=== PATIENT | female | born 1940 | race Caucasian/White ===

== ENCOUNTER 2020-10-24 10:34 | Inpatient (IN) | payer MEDICARE ==
[2020-10-24 11:47] LABS: #Basophils 0.1 thou/uL (0.0-0.2); #Lymphocytes 1.1 thou/uL (1.20-3.40); #Monocytes 0.7 thou/uL (0.11-0.59); #Neutrophils 5.5 thou/uL (1.40-6.50); %Basophils 1.3 % (0.0-1.0); %Eosinophils 0.5 % (0.0-10.0); %Lymphocytes 14.2 % (21.0-51.0); %Monocytes 9.6 % (0.0-10.0); %Neutrophils 74.4 % (42.0-75.0); Mean Corpuscular Hemoglobin 29.3 pg (27.0-31.0); Mean Corpuscular Volume 88.8 fL (78.0-98.0); Mean Platelet Volume 7.7 fL (7.4-10.4); Platelet Count 218 thou/uL (130-400); RBC Distribution Width 13.4 % (11.5-14.5); Red Blood Cell (RBC) Count 4.09 mill/uL (4.20-5.40); White Blood Cell (WBC) Count 7.4 thou/uL (4.8-10.8)
[2020-10-24 12:18] LABS: ALT (SGPT) 19 U/L (8-55); AST (SGOT) 23 U/L (5-34); Albumin 3.8 g/dL (3.4-4.8); Alkaline Phosphatase 65 U/L (40-110); Anion Gap 12 mmol/L (10-20); BUN (Urea Nitrogen) 24 mg/dL (9.8-20.1); Bilirubin, Total 1.3 mg/dL (0.2-1.2); Calc. Creatinine Clearance 0 mL/min (70-130); Calcium 9.6 mg/dL (7.8-10.44); Carbon Dioxide 25 mmol/L (23-31); Chloride 105 mmol/L (98-107); Globulin 2.3 g/dL (2.4-3.5); Glucose 132 mg/dL (83-110); Lipase 33 U/L (8-78); Potassium 4.1 mmol/L (3.5-5.1); Protein, Total 6.1 g/dL (5.8-8.1); Sodium 138 mmol/L (136-145)
[2020-10-24] MEDS ORDERED: Pantoprazole 80 MG, Admixture Fee 1 EACH in Sodium Chloride 0.9% 100 ML IVPB SCH (12:45)
[2020-10-24] MEDS ORDERED: Acetaminophen 325 MG TAB PO PRN (14:37)
[2020-10-24] MEDS ORDERED: HYDROcodone/Acetaminophen 5/325 mg Tablet PO PRN (14:37)
[2020-10-24] MEDS ORDERED: Ondansetron PF 4 MG/2 ML Vial IVP PRN (14:37)
[2020-10-24] MEDS ORDERED: Iopamidol-370 76% 500 ML 1 ML ONE (14:52)
[2020-10-24] MEDS ORDERED: Pantoprazole 40 MG VIAL ONE (14:54)
[2020-10-24 17:11] VITALS: BMI 29.5
[2020-10-24 17:22] LABS: Hemoglobin 10.3 g/dL (12.0-16.0); Platelet Count 187 thou/uL (130-400)
[2020-10-24 22:04] LABS: SARS-CoV-2 PCR by NAA Not Detected (NotDetected)
[2020-10-24 23:28] LABS: Hemoglobin 9.6 g/dL (12.0-16.0); Platelet Count 175 thou/uL (130-400)
[2020-10-25 06:10] LABS: #Basophils 0.1 thou/uL (0.0-0.2); #Eosinphils 0.1 thou/uL (0.0-0.7); #Lymphocytes 2.1 thou/uL (1.20-3.40); #Monocytes 0.7 thou/uL (0.11-0.59); %Basophils 1.1 % (0.0-1.0); %Eosinophils 2.4 % (0.0-10.0); %Lymphocytes 35.3 % (21.0-51.0); %Monocytes 11.2 % (0.0-10.0); Hemoglobin 8.9 g/dL (12.0-16.0); Mean Corpuscular HGB CONC 34.1 g/dL (32.0-36.0); Mean Corpuscular Hemoglobin 29.9 pg (27.0-31.0); Mean Corpuscular Volume 87.7 fL (78.0-98.0); Platelet Count 167 thou/uL (130-400); RBC Distribution Width 13.5 % (11.5-14.5); Red Blood Cell (RBC) Count 2.96 mill/uL (4.20-5.40)
[2020-10-25 06:20] LABS: INR-International Normal Ratio 1.1
[2020-10-25 06:33] LABS: Anion Gap 8 mmol/L (10-20); BUN (Urea Nitrogen) 22 mg/dL (9.8-20.1); Calc. Creatinine Clearance 99 mL/min (70-130); Calcium 8.3 mg/dL (7.8-10.44); Carbon Dioxide 25 mmol/L (23-31); Chloride 110 mmol/L (98-107); Glucose 101 mg/dL (83-110); Potassium 3.9 mmol/L (3.5-5.1); Sodium 139 mmol/L (136-145)
[2020-10-25] MEDS ORDERED: Loratadine 10 MG TAB PO PRN (08:10)
[2020-10-25] MEDS ORDERED: Non-Formulary Item 1 EACH (Mirabegron [Myrbetriq] 50 MG Tab.Er.24h) PO SCH (09:00)
[2020-10-25] MEDS ORDERED: Lidocaine 1% PF 5 ML VIAL ONE (10:12)
[2020-10-25] MEDS ORDERED: PHENYLEPHRINE-NS 100 MCG/ML 10 ML SYRINGE ONE (10:12)
[2020-10-25] MEDS ORDERED: PROPOFOL 200 MG/20 ML VIAL ONE (10:12)
[2020-10-25] MEDS ORDERED: Fentanyl 100 MCG/2 ML VIAL ONE (10:54)
[2020-10-25] MEDS ORDERED: Non-Formulary Medication 1 EACH PO PRN (12:02)
[2020-10-25] MEDS ORDERED: Ondansetron PF 4 MG/2 ML Vial IVP PRN (12:03)
[2020-10-25] MEDS ORDERED: Promethazine HCl 25 MG/ML VIAL IM/IV PRN (12:15)
[2020-10-25] MEDS ORDERED: Ondansetron HCl/PF 4 MG/2 ML Vial IVP PRN (12:15)
[2020-10-25 12:37] LABS: Hemoglobin 8.9 g/dL (12.0-16.0); Platelet Count 161 thou/uL (130-400)
[2020-10-25] MEDS: Calcium Carbonate 600 MG + Vit D TAB PO SCH ×3 (12:54→21:06)
[2020-10-25] MEDS: Atorvastatin Calcium 40 MG TAB PO SCH (12:54)
[2020-10-25] MEDS: Metoprolol Tartrate 25 MG TAB PO SCH ×2 (12:54→21:06)
[2020-10-25] MEDS: Levothyroxine Sodium 125 MCG TAB PO SCH (12:55)
[2020-10-25] MEDS: Pantoprazole 40 MG VIAL IVP SCH (21:06)
[2020-10-26 05:52] LABS: #Basophils 0.1 thou/uL (0.0-0.2); #Eosinphils 0.2 thou/uL (0.0-0.7); #Lymphocytes 1.7 thou/uL (1.20-3.40); #Monocytes 0.5 thou/uL (0.11-0.59); #Neutrophils 4.8 thou/uL (1.40-6.50); %Basophils 0.7 % (0.0-1.0); %Eosinophils 2.6 % (0.0-10.0); %Lymphocytes 23.7 % (21.0-51.0); %Monocytes 7.1 % (0.0-10.0); Mean Corpuscular HGB CONC 33.2 g/dL (32.0-36.0); Mean Corpuscular Hemoglobin 29.2 pg (27.0-31.0); Mean Corpuscular Volume 87.9 fL (78.0-98.0); Mean Platelet Volume 8.1 fL (7.4-10.4); Platelet Count 165 thou/uL (130-400); RBC Distribution Width 13.8 % (11.5-14.5); Red Blood Cell (RBC) Count 2.75 mill/uL (4.20-5.40); White Blood Cell (WBC) Count 7.3 thou/uL (4.8-10.8)
[2020-10-26 06:13] LABS: Anion Gap 10 mmol/L (10-20); BUN (Urea Nitrogen) 13 mg/dL (9.8-20.1); Calc. Creatinine Clearance 101 mL/min (70-130); Calcium 8.3 mg/dL (7.8-10.44); Carbon Dioxide 25 mmol/L (23-31); Chloride 109 mmol/L (98-107); Glucose 101 mg/dL (83-110); Sodium 140 mmol/L (136-145)
[2020-10-26] MEDS: Levothyroxine Sodium 125 MCG TAB PO SCH (09:26)
[2020-10-26] MEDS: Pantoprazole 40 MG VIAL IVP SCH ×2 (09:29→20:53)
[2020-10-26] MEDS: Metoprolol Tartrate 25 MG TAB PO SCH ×2 (10:37→20:52)
[2020-10-26] MEDS: Atorvastatin Calcium 40 MG TAB PO SCH (10:37)
[2020-10-26] MEDS: Calcium Carbonate 600 MG + Vit D TAB PO SCH ×3 (10:37→20:52)
[2020-10-26 11:02] LABS: Hemoglobin 8.4 g/dL (12.0-16.0)
[2020-10-26 19:09] LABS: Hemoglobin 8.6 g/dL (12.0-16.0)
[2020-10-27] MEDS ORDERED: Levothyroxine Sodium 125 MCG TAB PO SCH (06:00)
[2020-10-27 06:20] LABS: #Basophils 0.1 thou/uL (0.0-0.2); #Eosinphils 0.3 thou/uL (0.0-0.7); #Lymphocytes 2.5 thou/uL (1.20-3.40); #Monocytes 0.6 thou/uL (0.11-0.59); #Neutrophils 5.4 thou/uL (1.40-6.50); %Basophils 0.8 % (0.0-1.0); %Eosinophils 2.9 % (0.0-10.0); %Lymphocytes 28.3 % (21.0-51.0); %Monocytes 7.1 % (0.0-10.0); Hemoglobin 9.2 g/dL (12.0-16.0); Mean Corpuscular HGB CONC 32.9 g/dL (32.0-36.0); Mean Platelet Volume 8.1 fL (7.4-10.4); Platelet Count 211 thou/uL (130-400); RBC Distribution Width 14.4 % (11.5-14.5); Red Blood Cell (RBC) Count 3.18 mill/uL (4.20-5.40); White Blood Cell (WBC) Count 8.9 thou/uL (4.8-10.8)
[2020-10-27 06:41] LABS: Anion Gap 12 mmol/L (10-20); BUN (Urea Nitrogen) 7 mg/dL (9.8-20.1); Calc. Creatinine Clearance 99 mL/min (70-130); Calcium 8.8 mg/dL (7.8-10.44); Carbon Dioxide 25 mmol/L (23-31); Chloride 106 mmol/L (98-107); Glucose 104 mg/dL (83-110); Potassium 3.8 mmol/L (3.5-5.1); Sodium 139 mmol/L (136-145)
[2020-10-27 07:04] VITALS: TEMP 98.4
[2020-10-27] MEDS: Atorvastatin Calcium 40 MG TAB PO SCH (08:24)
[2020-10-27] MEDS: Pantoprazole 40 MG VIAL IVP SCH (08:24)
[2020-10-27] MEDS: Metoprolol Tartrate 25 MG TAB PO SCH (08:24)
[2020-10-27] MEDS: Calcium Carbonate 600 MG + Vit D TAB PO SCH ×2 (08:24→14:01)
[2020-10-27 15:48] VITALS: BP 113/67
== END 2020-10-27 16:14 | disposition home or self-care (01) | DRG 378 ==
LOC: ERS 10:34 → T4-A 14:22 → OBSVTOIN 10-26 13:25
PROVIDERS: ADMIT Family Medicine; ATTEND Internal Medicine
PROC: 0W3P8ZZ Control Bleeding in Gastrointestinal Tract, Via Natural or Artificial Opening Endoscopic (ICD-10-PCS; principal; 2020-10-25)
DX: K31.82 Dieulafoy lesion (hemorrhagic) of stomach and duodenum (principal); D62 Acute posthemorrhagic anemia; I42.2 Other hypertrophic cardiomyopathy; Z20.822 Contact with and (suspected) exposure to COVID-19; K44.9 Diaphragmatic hernia without obstruction or gangrene; K22.2 Esophageal obstruction; E78.5 Hyperlipidemia, unspecified; I48.0 Paroxysmal atrial fibrillation; I95.9 Hypotension, unspecified; I35.0 Nonrheumatic aortic (valve) stenosis; E03.9 Hypothyroidism, unspecified; Z88.0 Allergy status to penicillin; Z88.1 Allergy status to other antibiotic agents; Z88.8 Allergy status to other drugs, medicaments and biological substances; Z86.73 Personal history of transient ischemic attack (TIA), and cerebral infarction without residual deficits; Z90.49 Acquired absence of other specified parts of digestive tract
CPT/HCPCS: 36415; 74177; 80048; 80053; 82274; 83690; 85025; 85610; 86850; 86900; 86901; 87635; 94760; 96365; 96366; 96376; C9113; G0378; J1610; J2704; J3010; J3490; Q9967; U0003; U0005

== ENCOUNTER 2021-01-17 16:05 | Outpatient (CLI) | payer MEDICARE, OTHER ==
[2021-01-18 15:25] LABS: SARS-CoV-2 PCR by NAA Not Detected (NotDetected)
== END 2021-01-17 16:06 | disposition home or self-care (01) ==
LOC: LABBT 16:05
PROVIDERS: ATTEND Internal Medicine
DX: Z01.812 Encounter for preprocedural laboratory examination (principal); K31.82 Dieulafoy lesion (hemorrhagic) of stomach and duodenum; K25.3 Acute gastric ulcer without hemorrhage or perforation; K22.2 Esophageal obstruction; Z20.822 Contact with and (suspected) exposure to COVID-19
CPT/HCPCS: U0003; U0005

== ENCOUNTER 2021-05-01 11:14 | Emergency (ER) | payer MEDICARE, OTHER ==
[2021-05-01 11:52] LABS: #Basophils 0.1 thou/uL (0.0-0.2); #Eosinphils 0.2 thou/uL (0.0-0.7); #Lymphocytes 1.4 thou/uL (1.20-3.40); #Monocytes 0.5 thou/uL (0.11-0.59); #Neutrophils 4.3 thou/uL (1.40-6.50); %Basophils 1.2 % (0.0-1.0); %Eosinophils 2.8 % (0.0-10.0); %Lymphocytes 21.9 % (21.0-51.0); %Monocytes 8.1 % (0.0-10.0); Hemoglobin 10.1 g/dL (12.0-16.0); Mean Corpuscular HGB CONC 31.4 g/dL (32.0-36.0); Mean Corpuscular Hemoglobin 23.5 pg (27.0-31.0); Mean Corpuscular Volume 74.9 fL (78.0-98.0); Mean Platelet Volume 9.1 fL (7.4-10.4); Platelet Count 193 thou/uL (130-400); RBC Distribution Width 15.4 % (11.5-14.5); Red Blood Cell (RBC) Count 4.31 mill/uL (4.20-5.40); White Blood Cell (WBC) Count 6.5 thou/uL (4.8-10.8)
[2021-05-01 12:09] LABS: Magnesium 1.5 mg/dL (1.6-2.6)
[2021-05-01 12:11] LABS: ALT (SGPT) 13 U/L (8-55); AST (SGOT) 19 U/L (5-34); Albumin 3.7 g/dL (3.4-4.8); Alkaline Phosphatase 69 U/L (40-110); Anion Gap 10 mmol/L (10-20); BUN (Urea Nitrogen) 10 mg/dL (9.8-20.1); Calc. Creatinine Clearance 0 mL/min (70-130); Calcium 9.1 mg/dL (7.8-10.44); Carbon Dioxide 26 mmol/L (23-31); Chloride 109 mmol/L (98-107); Globulin 1.9 g/dL (2.4-3.5); Glucose 135 mg/dL (83-110); Potassium 4.1 mmol/L (3.5-5.1); Protein, Total 5.6 g/dL (5.8-8.1); Sodium 141 mmol/L (136-145)
[2021-05-01 14:59] LABS: Hemoglobin 9.5 g/dL (12.0-16.0)
[2021-05-01] MEDS ORDERED: Mag-Al 1200 mg/1200 mg/30 ML UDCUP ONE (15:16)
[2021-05-01] MEDS ORDERED: Magnesium Oxide 400 MG TAB PO SCH (15:30)
== END 2021-05-01 16:30 | disposition home or self-care (01) ==
LOC: ERS 11:14
DX: K62.5 Hemorrhage of anus and rectum (principal); E83.42 Hypomagnesemia; E03.9 Hypothyroidism, unspecified; I10 Essential (primary) hypertension; E78.5 Hyperlipidemia, unspecified; I25.2 Old myocardial infarction; I63.9 Cerebral infarction, unspecified; Z87.891 Personal history of nicotine dependence
CPT/HCPCS: 36415; 74177; 80053; 82274; 83735; 85025; 86850; 86900; 86901

== ENCOUNTER 2021-06-18 09:00 | Outpatient (CLI) | payer MEDICARE, OTHER ==
[2021-06-18 10:18] LABS: #Basophils 0.1 10x3/uL (0.0-0.2); #Eosinphils 0.1 10x3/uL (0.0-0.5); #Monocytes 0.6 10x3/uL (0.0-1.1); #Neutrophils 3.7 10x3/uL (1.5-8.4); %Basophils 1.5 % (0.0-2.0); %Eosinophils 2.2 % (0.0-6.0); %Lymphocytes 23.1 % (18.0-47.0); %Monocytes 10.2 % (0.0-10.0); %Neutrophils 62.5 % (40.0-75.0); Hemoglobin 9.7 g/dL (12.0-15.5); Mean Corpuscular HGB CONC 28.8 g/dL (32.0-36.0); Mean Corpuscular Hemoglobin 20.8 pg (27.0-33.0); Mean Corpuscular Volume 72.3 fl (81.6-98.3); Mean Platelet Volume 10.9 fl (7.4-10.4); Platelet Count 238 10x3/uL (150-450); RBC Distribution Width 14.8 % (11.5-14.5); Red Blood Cell (RBC) Count 4.66 10x6/uL (3.90-5.03)
[2021-06-18 10:36] LABS: Anisocytosis SLIGHT = 6-15 cells (100X) (0-5/hpf); Hypochromia SLIGHT = 6-15 cells (100X) (0-5/hpf); Microcytosis SLIGHT = 6-15 cells (100X) (0-5/hpf); Ovalocytes SLIGHT = 2-5 cells (100X) (0-1/hpf); Platelet Morphology Comment Appears Adequate; Poikilocytosis SLIGHT = 6-15 cells (100X) (0-5/hpf); Polychromasia SLIGHT = 2-3 cells (100X) (0-2/hpf)
[2021-06-18 10:54] LABS: ALT (SGPT) 11 U/L (8-55); AST (SGOT) 17 U/L (5-34); Albumin 4.1 g/dL (3.4-4.8); Alkaline Phosphatase 67 U/L (40-110); Anion Gap 12 mmol/L (10-20); BUN (Urea Nitrogen) 13 mg/dL (9.8-20.1); Bilirubin, Total 1.2 mg/dL (0.2-1.2); Calc. Creatinine Clearance 0 mL/min (70-130); Calcium 9.3 mg/dL (7.8-10.44); Carbon Dioxide 26 mmol/L (23-31); Cardiac Risk 2.2 (Less than 4.5); Chloride 108 mmol/L (98-107); Cholesterol 110 mg/dl (< 200 Desired); Glucose 102 mg/dL (83-110); HDL Cholesterol 51 mg/dL (>60 Neg Risk); LDL Cholesterol, Calculated 46 mg/dL; Potassium 4.4 mmol/L (3.5-5.1); Protein, Total 6.1 g/dL (5.8-8.1); Sodium 142 mmol/L (136-145); Triglycerides 64 mg/dL (Less than 150)
[2021-06-19 14:34] LABS: SARS-CoV-2 PCR by NAA Not Detected (NotDetected)
== END 2021-06-18 09:01 | disposition home or self-care (01) ==
LOC: LABBT 09:00
PROVIDERS: ATTEND Internal Medicine Cardiovascular Disease
DX: Z01.812 Encounter for preprocedural laboratory examination (principal); Z20.822 Contact with and (suspected) exposure to COVID-19
CPT/HCPCS: 80053; 80061; 85025; U0003; U0005

== ENCOUNTER 2021-06-20 06:12 | Day surgery (SDC) | payer MEDICARE, OTHER ==
[2021-06-16 14:07] VITALS: BMI 31.1
[2021-06-20] MEDS ORDERED: Verapamil 5 MG/2 ML VIAL ONE (06:46)
[2021-06-20] MEDS ORDERED: Heparin 10,000 UNITS/ 10 ML VIAL ONE (06:46)
[2021-06-20] MEDS ORDERED: Nitroglycerin 100MG/250ML BOT 250 ML ONE (06:46)
[2021-06-20] MEDS ORDERED: Fentanyl 100 MCG/2 ML VIAL ONE (08:44)
[2021-06-20] MEDS ORDERED: Midazolam HCl 2 mg/2 ml Vial ONE (08:44)
[2021-06-20] MEDS ORDERED: Iopamidol 370 76% 100 ML VIAL ONE (09:39)
== END 2021-06-20 11:58 | disposition home or self-care (01) ==
LOC: CCL 06:12
PROVIDERS: ATTEND Internal Medicine Cardiovascular Disease
PROC: 4A023N7 Measurement of Cardiac Sampling and Pressure, Left Heart, Percutaneous Approach (ICD-10-PCS; principal; 2021-06-20)
PROC: B2111ZZ Fluoroscopy of Multiple Coronary Arteries using Low Osmolar Contrast (ICD-10-PCS; 2021-06-20)
DX: I25.10 Atherosclerotic heart disease of native coronary artery without angina pectoris (principal); I48.0 Paroxysmal atrial fibrillation; I48.3 Typical atrial flutter; I42.1 Obstructive hypertrophic cardiomyopathy; E03.9 Hypothyroidism, unspecified; E78.5 Hyperlipidemia, unspecified; I10 Essential (primary) hypertension; I25.2 Old myocardial infarction; Z86.73 Personal history of transient ischemic attack (TIA), and cerebral infarction without residual deficits; Z87.891 Personal history of nicotine dependence; Z79.02 Long term (current) use of antithrombotics/antiplatelets; Z79.899 Other long term (current) drug therapy; Z88.0 Allergy status to penicillin; Z88.1 Allergy status to other antibiotic agents; Z88.5 Allergy status to narcotic agent
CPT/HCPCS: 93458; 99152; J1644; J2250; J3010; Q9967

== ENCOUNTER 2022-05-12 15:16 | Outpatient (CLI) | payer MEDICARE, OTHER | END 2022-05-12 15:17 | disposition home or self-care (01) | LOC: BICMAMMO 15:16 | PROVIDERS: ATTEND Student in an Organized Health Care Education/Training Program | DX: Z13.820 Encounter for screening for osteoporosis (principal); E28.39 Other primary ovarian failure; M85.851 Other specified disorders of bone density and structure, right thigh; M85.852 Other specified disorders of bone density and structure, left thigh; Z78.0 Asymptomatic menopausal state | CPT/HCPCS: 77080 ==

== ENCOUNTER 2022-06-13 09:31 | Inpatient (IN) | payer MEDICARE, OTHER ==
[2022-06-13 10:14] LABS: #Basophils 0.1 thou/uL (0.0-0.2); #Eosinphils 0.1 thou/uL (0.0-0.7); #Lymphocytes 1.5 thou/uL (1.20-3.40); #Monocytes 0.7 thou/uL (0.11-0.59); #Neutrophils 8.9 thou/uL (1.40-6.50); %Basophils 0.7 % (0.0-1.0); %Eosinophils 1.1 % (0.0-10.0); %Lymphocytes 13.1 % (21.0-51.0); %Monocytes 6.6 % (0.0-10.0); %Neutrophils 78.5 % (42.0-75.0); Hemoglobin 15.3 g/dL (12.0-16.0); Mean Corpuscular HGB CONC 33.9 g/dL (32.0-36.0); Mean Corpuscular Hemoglobin 30.6 pg (27.0-31.0); Mean Corpuscular Volume 90.2 fl (78.0-98.0); Mean Platelet Volume 7.7 fL (7.4-10.4); Platelet Count 232 10x3/uL (130-400); RBC Distribution Width 12.1 % (11.5-14.5); Red Blood Cell (RBC) Count 5.01 mill/uL (4.20-5.40); White Blood Cell (WBC) Count 11.3 10x3/uL (4.8-10.8)
[2022-06-13 10:36] LABS: ALT (SGPT) 17 U/L (8-55); AST (SGOT) 19 U/L (5-34); Albumin 4.2 g/dL (3.4-4.8); Alkaline Phosphatase 68 U/L (40-110); Anion Gap 13 mmol/L (10-20); BUN (Urea Nitrogen) 12 mg/dL (9.8-20.1); Bilirubin, Total 1.5 mg/dL (0.2-1.2); Calc. Creatinine Clearance 0 mL/min (70-130); Calcium 9.8 mg/dL (7.8-10.44); Carbon Dioxide 27 mmol/L (23-31); Chloride 103 mmol/L (98-107); Estimated GFR 77; Globulin 2.7 g/dL (2.4-3.5); Glucose 129 mg/dL (83-110); Lipase 28 U/L (8-78); Potassium 4.4 mmol/L (3.5-5.1); Protein, Total 6.9 g/dL (5.8-8.1); Sodium 139 mmol/L (136-145)
[2022-06-13 10:42] LABS: Bacteria/HPF 2+ HPF (None Seen); Bilirubin Negative (Negative); Blood, Urine 2+ (Negative); Clarity Turbid (Clear); Glucose, Urine (Dipstick) Normal (Negative); Ketone, Urine Negative (Negative); Leukocyte 500 Leu/uL (Negative); Nitrite Negative (Negative); Protein, Urine (Dipstick) 50 mg/dL (Neg-Trace); Specific Gravity, Urine 1.006 (1.002-1.036); Squamous Epithelial 0-3 HPF (0-3); Urobilinogen Normal mg/dL (Less than 2); WBC/HPF Greater than 50 HPF (0-3)
[2022-06-13] MEDS ORDERED: Vancomycin 1 GM/200 ML (FROZEN) BAG ONE (13:04)
[2022-06-13] MEDS ORDERED: Senokot S 8.6-50 MG TAB PO PRN (13:43)
[2022-06-13] MEDS ORDERED: Meropenem 1 GM in Sodium Chloride 0.9% 100 ML IVPB SCH ×2 (14:00)
[2022-06-13 16:36] VITALS: BMI 33.2
[2022-06-13] MEDS ORDERED: Loratadine 10 MG TAB PO PRN (18:20)
[2022-06-13] MEDS: Sodium Chloride 0.9% 1,000 ML IV SCH (18:33)
[2022-06-13] MEDS: Acetaminophen 325 MG TAB PO PRN (20:04)
[2022-06-13] MEDS: Metoprolol Tartrate 25 MG TAB PO SCH (20:04)
[2022-06-13] MEDS ORDERED: Fluticasone Propionate Nasal Spray 16 gm Bottle NASAL PRN (20:21)
[2022-06-13] MEDS: Benzonatate 100 MG CAP PO PRN (21:03)
[2022-06-13] MEDS: Meropenem 1 GM in Sodium Chloride 0.9% 100 ML IVPB SCH (21:28)
[2022-06-14] MEDS: Vancomycin HCl 750 MG in Sodium Chloride 0.9% 250 ML 250 ML IVPB SCH ×2 (01:15→14:28)
[2022-06-14] MEDS: Sodium Chloride 0.9% 1,000 ML IV SCH ×3 (01:21→22:16)
[2022-06-14] MEDS: Meropenem 1 GM in Sodium Chloride 0.9% 100 ML IVPB SCH ×3 (05:03→22:15)
[2022-06-14] MEDS: Levothyroxine Sodium 125 MCG TAB PO SCH (05:03)
[2022-06-14] MEDS ORDERED: guaiFENesin ER 600 MG TAB PO SCH (06:00)
[2022-06-14 06:47] LABS: #Basophils 0.1 thou/uL (0.0-0.2); #Eosinphils 0.2 thou/uL (0.0-0.7); #Lymphocytes 1.8 thou/uL (1.20-3.40); #Monocytes 0.8 thou/uL (0.11-0.59); #Neutrophils 4.2 thou/uL (1.40-6.50); %Eosinophils 3.4 % (0.0-10.0); %Lymphocytes 25.1 % (21.0-51.0); %Monocytes 10.8 % (0.0-10.0); %Neutrophils 59.7 % (42.0-75.0); Hemoglobin 13.5 g/dL (12.0-16.0); Mean Corpuscular HGB CONC 34.8 g/dL (32.0-36.0); Mean Corpuscular Hemoglobin 31.7 pg (27.0-31.0); Mean Corpuscular Volume 91.1 fl (78.0-98.0); Mean Platelet Volume 7.4 fL (7.4-10.4); Platelet Count 195 10x3/uL (130-400); RBC Distribution Width 12.2 % (11.5-14.5); Red Blood Cell (RBC) Count 4.25 mill/uL (4.20-5.40); White Blood Cell (WBC) Count 7.1 10x3/uL (4.8-10.8)
[2022-06-14 07:14] LABS: Anion Gap 8 mmol/L (10-20); BUN (Urea Nitrogen) 8 mg/dL (9.8-20.1); Calc. Creatinine Clearance 97 mL/min (70-130); Calcium 8.7 mg/dL (7.8-10.44); Carbon Dioxide 28 mmol/L (23-31); Chloride 107 mmol/L (98-107); Estimated GFR 87; Glucose 90 mg/dL (83-110); Potassium 3.8 mmol/L (3.5-5.1); Sodium 139 mmol/L (136-145)
[2022-06-14] MEDS: Enoxaparin Sodium 40 MG/0.4 ML SYRINGE SC SCH (08:57)
[2022-06-14] MEDS: Clopidogrel Bisulfate 75 MG TAB PO SCH (08:57)
[2022-06-14] MEDS: Metoprolol Tartrate 25 MG TAB PO SCH ×2 (08:57→20:17)
[2022-06-14] MEDS: Atorvastatin Calcium 40 MG TAB PO SCH (08:57)
[2022-06-14] MEDS: Lisinopril 5 MG TAB PO SCH (08:57)
[2022-06-14] MEDS: Acetaminophen 325 MG TAB PO PRN (09:05)
[2022-06-14] MEDS: Benzonatate 100 MG CAP PO PRN (09:05)
[2022-06-14] MEDS: guaiFENesin ER 600 MG TAB PO SCH (20:17)
[2022-06-15 01:39] LABS: Vancomycin, Trough 7.6 ug/mL
[2022-06-15] MEDS ORDERED: Vancomycin 1 GM in Premix Bag 1 BAG IVPB SCH (02:00)
[2022-06-15] MEDS: Levothyroxine Sodium 125 MCG TAB PO SCH (04:50)
[2022-06-15] MEDS: Acetaminophen 325 MG TAB PO PRN ×3 (04:50→20:18)
[2022-06-15] MEDS: Meropenem 1 GM in Sodium Chloride 0.9% 100 ML IVPB SCH (04:59)
[2022-06-15] MEDS: Benzonatate 100 MG CAP PO PRN (05:56)
[2022-06-15] MEDS ORDERED: Morphine 4 MG/ML VIAL SLOW IVP SCH (06:00)
[2022-06-15 07:15] LABS: #Basophils 0.1 thou/uL (0.0-0.2); #Eosinphils 0.2 thou/uL (0.0-0.7); #Lymphocytes 1.5 thou/uL (1.20-3.40); #Monocytes 0.6 thou/uL (0.11-0.59); #Neutrophils 6.7 thou/uL (1.40-6.50); %Basophils 0.9 % (0.0-1.0); %Eosinophils 2.5 % (0.0-10.0); %Lymphocytes 15.9 % (21.0-51.0); %Neutrophils 73.8 % (42.0-75.0); Hemoglobin 13.8 g/dL (12.0-16.0); Mean Corpuscular HGB CONC 33.7 g/dL (32.0-36.0); Mean Corpuscular Hemoglobin 30.6 pg (27.0-31.0); Mean Corpuscular Volume 90.7 fl (78.0-98.0); Mean Platelet Volume 7.8 fL (7.4-10.4); Platelet Count 203 10x3/uL (130-400); RBC Distribution Width 12.2 % (11.5-14.5); White Blood Cell (WBC) Count 9.1 10x3/uL (4.8-10.8)
[2022-06-15 07:19] LABS: Anion Gap 11 mmol/L (10-20); BUN (Urea Nitrogen) 11 mg/dL (9.8-20.1); Calc. Creatinine Clearance 98 mL/min (70-130); Carbon Dioxide 23 mmol/L (23-31); Chloride 107 mmol/L (98-107); Estimated GFR 87; Glucose 115 mg/dL (83-110); Potassium 3.9 mmol/L (3.5-5.1); Sodium 137 mmol/L (136-145)
[2022-06-15] MEDS ORDERED: Morphine 4 MG/ML VIAL ONE (08:26)
[2022-06-15] MEDS: Ondansetron PF 4 MG/2 ML Vial IVP PRN (08:35)
[2022-06-15] MEDS: Sodium Chloride 0.9% 1,000 ML IV SCH ×3 (08:40→17:34)
[2022-06-15] MEDS: Metoprolol Tartrate 25 MG TAB PO SCH ×2 (09:00→20:19)
[2022-06-15] MEDS: Enoxaparin Sodium 40 MG/0.4 ML SYRINGE SC SCH (09:00)
[2022-06-15] MEDS: guaiFENesin ER 600 MG TAB PO SCH ×2 (09:00→20:21)
[2022-06-15] MEDS: Clopidogrel Bisulfate 75 MG TAB PO SCH (09:00)
[2022-06-15] MEDS: Atorvastatin Calcium 40 MG TAB PO SCH (09:00)
[2022-06-15] MEDS: Lisinopril 5 MG TAB PO SCH (09:00)
[2022-06-15] MEDS ORDERED: hydrALAZINE 25 MG TAB PO PRN (12:13)
[2022-06-15] MEDS: Morphine 4 MG/ML VIAL SLOW IVP PRN ×3 (12:21→21:31)
[2022-06-16] MEDS: Acetaminophen 325 MG TAB PO PRN (03:03)
[2022-06-16] MEDS: Ondansetron PF 4 MG/2 ML Vial IVP PRN (03:03)
[2022-06-16] MEDS: Morphine 4 MG/ML VIAL SLOW IVP PRN (03:03)
[2022-06-16] MEDS: Levothyroxine Sodium 125 MCG TAB PO SCH (05:12)
[2022-06-16 07:31] LABS: Hemoglobin 13.5 g/dL (12.0-16.0); Mean Corpuscular Hemoglobin 31.6 pg (27.0-31.0); Mean Corpuscular Volume 90.4 fl (78.0-98.0); Mean Platelet Volume 7.8 fL (7.4-10.4); Platelet Count 159 10x3/uL (130-400); RBC Distribution Width 12.2 % (11.5-14.5); Red Blood Cell (RBC) Count 4.28 mill/uL (4.20-5.40); White Blood Cell (WBC) Count 12.7 10x3/uL (4.8-10.8)
[2022-06-16 07:33] LABS: Anion Gap 13 mmol/L (10-20); BUN (Urea Nitrogen) 17 mg/dL (9.8-20.1); Calc. Creatinine Clearance 73 mL/min (70-130); Calcium 8.6 mg/dL (7.8-10.44); Carbon Dioxide 23 mmol/L (23-31); Chloride 104 mmol/L (98-107); Estimated GFR 64; Glucose 118 mg/dL (83-110); Potassium 3.7 mmol/L (3.5-5.1); Sodium 136 mmol/L (136-145)
[2022-06-16] MEDS: Lisinopril 5 MG TAB PO SCH (07:56)
[2022-06-16] MEDS: Clopidogrel Bisulfate 75 MG TAB PO SCH (07:57)
[2022-06-16] MEDS: guaiFENesin ER 600 MG TAB PO SCH (07:57)
[2022-06-16] MEDS: Atorvastatin Calcium 40 MG TAB PO SCH (07:57)
[2022-06-16] MEDS: Metoprolol Tartrate 25 MG TAB PO SCH (07:57)
[2022-06-16 07:58] VITALS: BP 100/63
[2022-06-16] MEDS: Enoxaparin Sodium 40 MG/0.4 ML SYRINGE SC SCH (07:58)
[2022-06-16 08:37] VITALS: TEMP 98.1
[2022-06-16 09:05] LABS: Band 22 % (5-11); Lymphocytes 3 % (21-51); MDiff Complete? YES; Monocytes 3 % (0-10); Neutrophil 70 % (42-75); Platelet Morphology Comment Appears Adequate; RBC Morphology Normal; Reactive Lymphocytes 2 % (0-10)
[2022-06-16] MEDS: Sodium Chloride 0.9% 1,000 ML IV SCH (12:19)
== END 2022-06-16 18:46 | disposition home or self-care (01) | DRG 690 ==
LOC: ERS 09:31 → T4-A 13:31
PROVIDERS: ADMIT Internal Medicine; ATTEND Internal Medicine
DX: N10 Acute pyelonephritis (principal); I48.92 Unspecified atrial flutter; I42.9 Cardiomyopathy, unspecified; I48.0 Paroxysmal atrial fibrillation; E03.9 Hypothyroidism, unspecified; E78.5 Hyperlipidemia, unspecified; I25.2 Old myocardial infarction; Z90.49 Acquired absence of other specified parts of digestive tract; Z87.891 Personal history of nicotine dependence; Z79.82 Long term (current) use of aspirin; Z88.0 Allergy status to penicillin; Z79.890 Hormone replacement therapy; Z79.899 Other long term (current) drug therapy
CPT/HCPCS: 36415; 51702; 74176; 80048; 80053; 80202; 81003; 81015; 83605; 83690; 85025; 87040; 87077; 87086; 87186; 87324; 87449; 96365; 96367; J1650; J1956; J2185; J2270; J2405; J3370; J3370-JW; J3490; J7050; U0003; U0005

== ENCOUNTER 2022-09-29 12:56 | Outpatient (CLI) | payer MEDICARE, OTHER | END 2022-09-29 12:57 | disposition home or self-care (01) | LOC: BICCT 12:56 | PROVIDERS: ATTEND Urology | DX: R31.9 Hematuria, unspecified (principal); N20.0 Calculus of kidney | CPT/HCPCS: 74178; 82565 ==

== ENCOUNTER 2022-10-26 12:37 | Outpatient (CLI) | payer MEDICARE, OTHER ==
[2022-10-26 14:28] LABS: Bilirubin Neg (Negative); Blood, Urine 250 (Negative); Clarity Clear (Clear); Glucose, Urine (Dipstick) Normal (Negative); Hemoglobin 15.1 g/dL (12.0-15.5); Ketone, Urine Negative (Negative); Leukocyte Negative (Negative); Mean Corpuscular HGB CONC 33.3 g/dL (32.0-36.0); Mean Corpuscular Volume 90.3 fl (81.6-98.3); Mean Platelet Volume 10.4 fl (7.4-10.4); Nitrite Negative (Negative); Platelet Count 226 10x3/uL (150-450); Protein, Urine (Dipstick) Negative (Neg-Trace); RBC Distribution Width 13.7 % (11.5-14.5); Red Blood Cell (RBC) Count 5.03 10x6/uL (3.90-5.03); Specific Gravity, Urine 1.015 (1.005-1.030); Urobilinogen Normal mg/dL (Less than 2); White Blood Cell (WBC) Count 9.8 10x3/uL (3.5-10.5)
[2022-10-26 14:49] LABS: Anion Gap 16 mmol/L (10-20); BUN (Urea Nitrogen) 14 mg/dL (9.8-20.1); Calc. Creatinine Clearance 0 mL/min (70-130); Calcium 9.5 mg/dL (7.8-10.44); Carbon Dioxide 26 mmol/L (23-31); Chloride 104 mmol/L (98-107); Estimated GFR 87; Glucose 99 mg/dL (83-110); Potassium 4.4 mmol/L (3.5-5.1); Sodium 142 mmol/L (136-145)
[2022-10-26 15:00] LABS: PTT 31.1 sec (22.0-33.0); Prothrombin Time 10.4 sec (9.5-12.1)
[2022-10-26 15:40] LABS: Bacteria/HPF None Seen HPF (None Seen); RBC/HPF 21-50 HPF (0-3); Squamous Epithelial 0-3 HPF (0-3); WBC/HPF 0-3 HPF (0-3)
== END 2022-10-26 12:38 | disposition home or self-care (01) ==
LOC: LABBT 12:37
PROVIDERS: ATTEND Urology
DX: Z01.812 Encounter for preprocedural laboratory examination (principal); N20.0 Calculus of kidney; I25.5 Ischemic cardiomyopathy; N39.46 Mixed incontinence; R31.0 Gross hematuria; N12 Tubulo-interstitial nephritis, not specified as acute or chronic; I42.2 Other hypertrophic cardiomyopathy
CPT/HCPCS: 80048; 81001; 85027; 85610; 85730; 87086